=== PATIENT | male | born 1940 | race Caucasian/White ===

== ENCOUNTER → 2016-12-02 | Outpatient (CLI) | payer OTHER | LOC: FIMAGING 10:33 | PROVIDERS: ATTEND Urology | DX: R31.9 Hematuria, unspecified (principal); Z87.440 Personal history of urinary (tract) infections ==

== ENCOUNTER → 2017-12-09 | Outpatient (CLI) | payer OTHER | LOC: FIMAGING 07:53 | PROVIDERS: ATTEND Family Medicine | DX: M25.551 Pain in right hip (principal); M84.851 Other disorders of continuity of bone, right pelvic region and thigh ==

== ENCOUNTER → 2017-12-22 | Outpatient (CLI) | payer OTHER | LOC: FIMAGING 08:58 | PROVIDERS: ATTEND Family Medicine | PROC: CP1Z1ZZ Planar Nuclear Medicine Imaging of Musculoskeletal System, All using Technetium 99m (Tc-99m) (ICD-10-PCS; principal; 2017-12-22) | DX: M25.551 Pain in right hip (principal); M50.30 Other cervical disc degeneration, unspecified cervical region | CPT/HCPCS: 78306; A9503 ==